=== PATIENT | female | born 1945 | race Caucasian/White ===

== ENCOUNTER 2021-10-05 10:30 | Outpatient (CLI) | payer MEDICARE, OTHER ==
[~2021-10-05 10:30] MED LIST: AMIT100T7; ATEN50TA PO; HYDR-4383 PO; [UNRECOGNIZED DRUG - CODE]
== END 2021-10-05 23:59 | disposition home or self-care (01) ==
LOC: RAD 10:30
PROVIDERS: ATTEND Psychiatry & Neurology Neurology
DX: R41.89 Other symptoms and signs involving cognitive functions and awareness (principal)
CPT/HCPCS: 95816

== ENCOUNTER 2023-09-04 14:21 | Outpatient (CLI) | payer MEDICARE, OTHER ==
[2023-09-04] MEDS ORDERED: GADOTERATE MEGLUMINE 7.5 MMOL/15 ML VIAL IV ONE (18:05)
== END 2023-09-04 23:59 | disposition home or self-care (01) ==
LOC: RAD 14:21 → MRI 23:59
PROVIDERS: ATTEND Physician Assistant
DX: G31.1 Senile degeneration of brain, not elsewhere classified (principal); R41.0 Disorientation, unspecified; R90.82 White matter disease, unspecified
CPT/HCPCS: 70553; A9575

== ENCOUNTER 2023-10-25 17:12 | Emergency (ER) | payer MEDICARE, OTHER ==
[2023-10-25 17:24] VITALS: BP 146/85; PULSE 85; O2SAT 100
[2023-10-25 18:21] VITALS: RESP 18
[2023-10-25] MEDS: HYDROcodone/acetaminophen 5mg/325mg tablet PO ONE (18:21)
[2023-10-25] MEDS ORDERED: HYDR-3965 PO (19:07)
[2023-10-25 19:09] VITALS: TEMP 98.7
[2023-10-30] MEDS ORDERED: CYCL-1 PO (11:59)
== END 2023-10-25 19:18 | disposition home or self-care (01) ==
LOC: ER 17:13
DX: S22.42XA Multiple fractures of ribs, left side, initial encounter for closed fracture (principal); I10 Essential (primary) hypertension; M19.90 Unspecified osteoarthritis, unspecified site; G89.29 Other chronic pain; Z88.0 Allergy status to penicillin; W01.0XXA Fall on same level from slipping, tripping and stumbling without subsequent striking against object, initial encounter; Y93.89 Activity, other specified; Y92.89 Other specified places as the place of occurrence of the external cause; Y99.8 Other external cause status
CPT/HCPCS: 71101; 99283

== ENCOUNTER 2024-01-16 09:52 | Emergency (ER) | payer MEDICARE, OTHER ==
[~2024-01-16] VITALS: Ht 167.6 cm; Wt 60.6 kg
[~2024-01-16 09:52] MED LIST changes: +CYCL-1 PO
[2024-01-16 10:18] VITALS: BP 175/90; PULSE 75; O2SAT 97
[2024-01-16] MEDS ORDERED: HYDR-3965 PO (11:15)
[2024-01-16] MEDS: HYDROcodone/acetaminophen 5mg/325mg tablet PO ONE (11:16)
[2024-01-16 11:18] VITALS: RESP 16
[2024-01-16 11:39] VITALS: TEMP 98.6
== END 2024-01-16 11:43 | disposition home or self-care (01) ==
LOC: ER 09:53
DX: S42.402A Unspecified fracture of lower end of left humerus, initial encounter for closed fracture (principal); I10 Essential (primary) hypertension; M19.90 Unspecified osteoarthritis, unspecified site; Z88.0 Allergy status to penicillin; Z79.899 Other long term (current) drug therapy; W18.40XA Slipping, tripping and stumbling without falling, unspecified, initial encounter; Y93.89 Activity, other specified; Y92.89 Other specified places as the place of occurrence of the external cause; Y99.8 Other external cause status
CPT/HCPCS: 29105; 73080; 99284; A4565; A6446; A6449

== ENCOUNTER 2024-01-21 12:53 | Emergency (ER) | payer MEDICARE, OTHER ==
[~2024-01-21] VITALS: Ht 167.6 cm; Wt 62.8 kg
[~2024-01-21 12:53] MED LIST changes: +HYDR-3965 PO
[2024-01-21 13:17] VITALS: BP 130/59; PULSE 79; TEMP 96.8; O2SAT 95
[2024-01-21] MEDS: HYDROcodone/acetaminophen 5mg/325mg tablet PO ONE (14:24)
[2024-01-21 14:26] VITALS: RESP 18
== END 2024-01-21 14:27 | disposition home or self-care (01) ==
LOC: ER 12:54
DX: S42.402A Unspecified fracture of lower end of left humerus, initial encounter for closed fracture (principal); I10 Essential (primary) hypertension; Z88.0 Allergy status to penicillin; W01.0XXA Fall on same level from slipping, tripping and stumbling without subsequent striking against object, initial encounter; Y93.89 Activity, other specified; Y92.89 Other specified places as the place of occurrence of the external cause; Y99.8 Other external cause status
CPT/HCPCS: 99283

== ENCOUNTER 2024-02-03 15:55 | Emergency (ER) | payer MEDICARE, OTHER ==
[~2024-02-03] VITALS: Ht 167.6 cm; Wt 60.0 kg
[2024-02-03] MEDS: normal saline 1000ml 1,000 ML IV ONE (17:27)
[2024-02-03 18:03] VITALS: BP 141/78; PULSE 70; RESP 16; TEMP 98; O2SAT 96
== END 2024-02-03 18:08 | disposition home or self-care (01) ==
LOC: ER 15:55
DX: R42 Dizziness and giddiness (principal); I10 Essential (primary) hypertension; M19.90 Unspecified osteoarthritis, unspecified site; G89.29 Other chronic pain; Z72.89 Other problems related to lifestyle; Z88.0 Allergy status to penicillin; Z79.899 Other long term (current) drug therapy
CPT/HCPCS: 96360; 99284; J7030